=== PATIENT | female | born 1940 | race African-American/Black ===

== ENCOUNTER 2016-12-23 09:51 | Outpatient (CLI) | payer MEDICARE, MEDICAID ==
[2016-12-23 10:42] LABS: #Basophils 0.1 thou/uL (0.0-0.2); #Lymphocytes 2.7 thou/uL (1.20-3.40); #Monocytes 0.5 thou/uL (0.11-0.59); #Neutrophils 4.8 thou/uL (1.40-6.50); %Basophils 0.9 % (0.0-1.0); %Eosinophils 0.5 % (0.0-10.0); %Monocytes 5.9 % (0.0-10.0); Hematocrit 39.1 % (36.0-47.0); Mean Platelet Volume 6.5 fL (7.4-10.4); Red Blood Cell (RBC) Count 4.85 mill/uL (4.20-5.40)
[2016-12-23 11:00] LABS: ALT (SGPT) 11 U/L (0-55); AST (SGOT) 17 U/L (5-34); Alkaline Phosphatase 82 U/L (40-150); Anion Gap 17 mmol/L (10-20); BUN (Urea Nitrogen) 30 mg/dL (9.8-20.1); Bilirubin, Total 0.6 mg/dL (0.2-1.2); Calc. Creatinine Clearance 0 mL/min (70-130); Calcium 9.4 mg/dL (7.8-10.44); Carbon Dioxide 27 mmol/L (23-31); Chloride 104 mmol/L (98-107); Estimated GFR-MDRD 41; LDL Cholesterol, Calculated 94 mg/dL; Protein, Total 6.9 g/dL (5.8-8.1)
== END 2016-12-23 09:52 ==
LOC: HPCALD 09:51
PROVIDERS: ATTEND Physician Assistant
DX: E78.5 Hyperlipidemia, unspecified (principal); I10 Essential (primary) hypertension
CPT/HCPCS: 36415; 80053; 80061; 84443; 85025

== ENCOUNTER 2017-07-03 10:24 | Outpatient (CLI) | payer MEDICARE, MEDICAID ==
[2017-07-03 14:44] LABS: Anion Gap 14 mmol/L (10-20); BUN (Urea Nitrogen) 23 mg/dL (9.8-20.1); Calc. Creatinine Clearance 0 mL/min (70-130); Calcium 9.8 mg/dL (7.8-10.44); Carbon Dioxide 27 mmol/L (23-31); Chloride 104 mmol/L (98-107); Estimated GFR-MDRD 39; Glucose 130 mg/dL (83-110); Potassium 3.1 mmol/L (3.5-5.1); Sodium 142 mmol/L (136-145)
== END 2017-07-03 10:25 | disposition home or self-care (01) ==
LOC: HPCALD 10:24
PROVIDERS: ATTEND Physician Assistant
DX: E04.9 Nontoxic goiter, unspecified (principal); N28.9 Disorder of kidney and ureter, unspecified
CPT/HCPCS: 36415; 80048; 84443

== ENCOUNTER → 2019-07-26 | Day surgery (SDC) | payer MEDICARE, MEDICAID ==
[2019-07-26 12:52] LABS: Bilirubin Negative (Negative); Blood, Urine Large (Negative); Clarity Slightly Cloudy (Clear); Glucose, Urine (Dipstick) Negative (Negative); Leukocyte Moderate (Negative); Nitrite Negative (Negative); Protein, Urine (Dipstick) 100 mg/dL (Neg-Trace); Urobilinogen 0.2 mg/dL (Less than 2)
[2019-07-26 12:53] LABS: Bacteria/HPF 1+ HPF (None Seen); Squamous Epithelial 0-3 HPF (0-3); WBC/HPF 0-3 HPF (0-3)
[2019-07-26 12:54] VITALS: BP 195/76; TEMP 98.1
== END ==
LOC: BUR/OP 12:03
PROVIDERS: ATTEND Physician Assistant
DX: R30.0 Dysuria (principal); R10.9 Unspecified abdominal pain
CPT/HCPCS: 51701; 81001; 87077; 87086; A4353

== ENCOUNTER 2020-03-22 09:41 | Outpatient (CLI) | payer MEDICARE, OTHER ==
--- NOTE | 2020-03-22 19:37 | RAD ---
LUMBAR SPINE THREE VIEWS: 03/22/20 Mild scoliosis convexed left is noted. There are substantial degenerative changes throughout the spin e consisting of osteophytes, as well as disc space narrowing at L4-L5 and L5-S1. Aortic and iliac art kaye calcifications are evident. The SI joints appear normal. A soft tissue calcification was seen in the right buttocks. IMPRESSION: Mild scoliosis and prominent degenerative change, particularly at the L4 through S1 levels. POS: HOME
== END 2020-03-22 09:42 | disposition home or self-care (01) ==
LOC: BURRAD 09:41
PROVIDERS: ATTEND Physician Assistant
DX: M54.5 Low back pain (principal); M47.816 Spondylosis without myelopathy or radiculopathy, lumbar region; M47.817 Spondylosis without myelopathy or radiculopathy, lumbosacral region; M41.9 Scoliosis, unspecified
CPT/HCPCS: 72100